=== PATIENT | male | born 1945 | race Caucasian/White ===

== ENCOUNTER 2020-03-16 19:24 | Emergency (ER) | payer OTHER ==
[~2020-03-16] VITALS: Ht 185.4 cm; Wt 111.1 kg
[2020-03-17] MEDS ORDERED: METOCLOPRAMIDE10 MG PO (00:36)
[2020-03-17] MEDS ORDERED: MOTION RELIEF25 MG PO (00:36)
== END 2020-03-17 00:45 ==
LOC: ER 19:24
DX: H81.13 Benign paroxysmal vertigo, bilateral (principal); Z20.828 Contact with and (suspected) exposure to other viral communicable diseases

== ENCOUNTER 2021-04-09 15:33 | Inpatient (IN) | payer OTHER ==
[~2021-04-09] VITALS: Ht 180.3 cm; Wt 95.7 kg
[~2021-04-09 15:33] MED LIST: METOCLOPRAMIDE10 MG PO; MOTION RELIEF25 MG PO
--- NOTE | 2021-04-09 16:19 | NUR ---
PTE REFIERE QUE TIENE UN DOLOR ABDOMINAL DESDE HACE 3 STEEL SE UBICA PTE EN AREA DE OBSERVACION
--- NOTE | 2021-04-09 16:43 | NUR ---
SE REALIZAN MUESTRAS DE SANGREA PACIENTE POR ORDEN MEDICA, ADMINISTRACION DE MEDICAMNETOS, SE ENTREGAN CONSTRASTES PARA REALIZAR ESTUDIO A PACIENTE CT. SE ORIENTA A PACIENTE SOBRE LA MANERA CORRECTA DE ARACELI EL CONSTRASTE. SE ENTREGA EMBACE PARA ARACELI U/A U/C. AL MOMENTO SE MANTIENE EN ESPERA DE RESULTADOS DE LABORATORIO, ENTREGAR MUESTRA DE ORINA Y REALIZAR ESTUDIO YA NOTIFICADO.
--- NOTE | 2021-04-09 16:45 | NUR ---
SE ORIENTA A PACIENTE SOBRE LAS ORDENES MEDICAS, Y SE TOMARON MEDIDAS ASEPTICAS AL INTERVENIR CON EL PACIENTE.
[2021-04-10] MEDS ORDERED: SERTRALINE HCL100 MG (08:14)
[2021-04-10] MEDS ORDERED: LORAZEPAM2 MG (08:14)
[2021-04-10] MEDS ORDERED: DORZOLAMIDE-TIM10 ML (08:14)
[2021-04-10] MEDS ORDERED: IRBESARTAN-HCT1 EACH (08:14)
[2021-04-23] MEDS ORDERED: SERTRALINE HCL100 MG PO (10:43)
[2021-04-23] MEDS ORDERED: BUPROPION HCL150 M1 PO (10:43)
[2021-04-23] MEDS ORDERED: LORAZEPAM1 MG PO (10:43)
[2021-04-23] MEDS ORDERED: LORAZEPAM2 MG PO (10:43)
[2021-04-23] MEDS ORDERED: INTEGRA F CAPS1 EACH PO (10:43)
[2021-04-23] MEDS ORDERED: ABANEU-SL TABL1 EACH SL (10:43)
[2021-04-23] MEDS ORDERED: AMOX-CLAV 875-1 EAC1 PO (10:43)
[2021-04-23] MEDS ORDERED: INTESTINEX680 M1 PO (11:08)
== END 2021-04-23 15:09 | disposition home or self-care (01) | DRG 393 ==
LOC: ER 15:33 → SURH 18:56 → SURG 21:29
PROVIDERS: ADMIT Internal Medicine Geriatric Medicine; ATTEND Internal Medicine Geriatric Medicine
PROC: 02HV33Z Insertion of Infusion Device into Superior Vena Cava, Percutaneous Approach (ICD-10-PCS; 2021-04-11)
PROC: 0DBK8ZX Excision of Ascending Colon, Via Natural or Artificial Opening Endoscopic, Diagnostic (ICD-10-PCS; principal; 2021-04-15)
PROC: 0DBL8ZX Excision of Transverse Colon, Via Natural or Artificial Opening Endoscopic, Diagnostic (ICD-10-PCS; 2021-04-15)
PROC: 0DBN8ZX Excision of Sigmoid Colon, Via Natural or Artificial Opening Endoscopic, Diagnostic (ICD-10-PCS; 2021-04-15)
PROC: 0DBP8ZX Excision of Rectum, Via Natural or Artificial Opening Endoscopic, Diagnostic (ICD-10-PCS; 2021-04-15)
PROC: 0DBM8ZX Excision of Descending Colon, Via Natural or Artificial Opening Endoscopic, Diagnostic (ICD-10-PCS; 2021-04-15)
PROC: 0DBH8ZX Excision of Cecum, Via Natural or Artificial Opening Endoscopic, Diagnostic (ICD-10-PCS; 2021-04-15)
PROC: 0W9J30Z Drainage of Pelvic Cavity with Drainage Device, Percutaneous Approach (ICD-10-PCS; 2021-04-17)
DX: D12.2 Benign neoplasm of ascending colon (principal); K35.33 Acute appendicitis with perforation, localized peritonitis, and gangrene, with abscess; K52.89 Other specified noninfective gastroenteritis and colitis; I88.9 Nonspecific lymphadenitis, unspecified; D12.3 Benign neoplasm of transverse colon; D12.8 Benign neoplasm of rectum; E86.0 Dehydration; D72.829 Elevated white blood cell count, unspecified; R19.7 Diarrhea, unspecified; I10 Essential (primary) hypertension; M51.26 Other intervertebral disc displacement, lumbar region; R53.81 Other malaise; F43.20 Adjustment disorder, unspecified

== ENCOUNTER 2021-12-11 07:28 | Inpatient (IN) | payer OTHER ==
[~2021-12-11] VITALS: Ht 177.8 cm; Wt 113.4 kg
[~2021-12-11 07:28] MED LIST changes: +ABANEU-SL TABL1 EACH SL; +AMOX-CLAV 875-1 EAC1 PO; +BUPROPION HCL150 M1 PO; +DORZOLAMIDE-TIM10 ML; +INTEGRA F CAPS1 EACH PO; +INTESTINEX680 M1 PO; +IRBESARTAN-HCT1 EACH; +LORAZEPAM1 MG PO; +LORAZEPAM2 MG; +LORAZEPAM2 MG PO; +SERTRALINE HCL100 MG; +SERTRALINE HCL100 MG PO
[2021-12-11] MEDS ORDERED: WELLBUTRIN SR150 MG PO (07:48)
[2021-12-11] MEDS ORDERED: LEXAPRO5 MG (07:48)
[2021-12-11] MEDS ORDERED: COZAAR25 MG (07:49)
[2021-12-11] MEDS ORDERED: AVAPRO150 MG PO (07:50)
[2021-12-18] MEDS ORDERED: HYDRODIURIL12.5 MG PO (14:24)
[2021-12-18] MEDS ORDERED: INTESTINEX680 M1 PO (14:24)
[2021-12-18] MEDS ORDERED: WELLBUTRIN SR150 MG PO (14:24)
[2021-12-18] MEDS ORDERED: AVAPRO150 MG PO (14:24)
[2021-12-18] MEDS ORDERED: lexapro PO (14:24)
[2021-12-18] MEDS ORDERED: ABANEU-SL TABL1 EACH SL (14:24)
[2021-12-18] MEDS ORDERED: FUSION PLUS CA1 EACH PO (14:24)
== END 2021-12-20 16:07 | disposition home or self-care (01) | DRG 392 ==
LOC: ER 07:28 → MEDJ 14:31 → MEDI 18:17
PROVIDERS: ADMIT Internal Medicine Geriatric Medicine; ATTEND Internal Medicine Geriatric Medicine
PROC: BW2110Z Computerized Tomography (CT Scan) of Abdomen and Pelvis using Low Osmolar Contrast, Unenhanced and Enhanced (ICD-10-PCS; 2021-12-11)
PROC: 02HV33Z Insertion of Infusion Device into Superior Vena Cava, Percutaneous Approach (ICD-10-PCS; principal; 2021-12-15)
PROC: B24BYZZ Ultrasonography of Heart with Aorta using Other Contrast (ICD-10-PCS; 2021-12-17)
DX: K57.20 Diverticulitis of large intestine with perforation and abscess without bleeding (principal); N17.9 Acute kidney failure, unspecified; E86.0 Dehydration; D72.829 Elevated white blood cell count, unspecified; D64.9 Anemia, unspecified; I10 Essential (primary) hypertension; E66.9 Obesity, unspecified; Z68.35 Body mass index [BMI] 35.0-35.9, adult

== ENCOUNTER 2022-07-30 14:30 | Inpatient (IN) | payer OTHER ==
[~2022-07-30] VITALS: Ht 180.3 cm; Wt 108.9 kg
[~2022-07-30 14:30] MED LIST changes: +AVAPRO150 MG PO; +COZAAR25 MG; +FUSION PLUS CA1 EACH PO; +HYDRODIURIL12.5 MG PO; +LEXAPRO5 MG; +WELLBUTRIN SR150 MG PO; +lexapro PO
[2022-08-04] MEDS ORDERED: HYDRODIURIL12.5 MG PO (11:50)
[2022-08-04] MEDS ORDERED: ABANEU-SL TABL1 EACH SL (11:50)
[2022-08-04] MEDS ORDERED: LEVSIN0.125 MG PO (11:50)
[2022-08-04] MEDS ORDERED: INTESTINEX680 M1 PO (11:50)
[2022-08-04] MEDS ORDERED: AVAPRO150 MG PO (11:50)
[2022-08-04] MEDS ORDERED: FUSION PLUS CA1 EACH PO (11:50)
[2022-08-04] MEDS ORDERED: FAMOTIDINE20 MG PO (11:50)
[2022-08-04] MEDS ORDERED: LORAZEPAM1 MG PO (11:50)
[2022-08-04] MEDS ORDERED: WELLBUTRIN SR150 MG PO (11:50)
[2022-08-04] MEDS ORDERED: lexapro PO (11:50)
[2022-08-04] MEDS ORDERED: METRONIDAZOLE500 MG PO (11:52)
[2022-08-04] MEDS ORDERED: CIPRO500 MG PO (11:52)
== END 2022-08-04 15:12 | disposition home or self-care (01) | DRG 388 ==
LOC: ER 14:30 → MEDI 17:52 → SURH 18:31
PROVIDERS: ADMIT Internal Medicine Geriatric Medicine; ATTEND Internal Medicine Geriatric Medicine
PROC: BW211ZZ Computerized Tomography (CT Scan) of Abdomen and Pelvis using Low Osmolar Contrast (ICD-10-PCS; principal; 2022-07-30)
PROC: 4A12X4Z Monitoring of Cardiac Electrical Activity, External Approach (ICD-10-PCS; 2022-07-31)
DX: K56.51 Intestinal adhesions [bands], with partial obstruction (principal); K57.31 Diverticulosis of large intestine without perforation or abscess with bleeding; E86.0 Dehydration; I10 Essential (primary) hypertension; M54.89 Other dorsalgia; I67.1 Cerebral aneurysm, nonruptured; E66.01 Morbid (severe) obesity due to excess calories; Z68.35 Body mass index [BMI] 35.0-35.9, adult